=== PATIENT | male | born 1965 | race Caucasian/White ===

== ENCOUNTER → 2024-12-18 | Outpatient (CLI) | payer BC, SELFPAY ==
--- NOTE | 2024-12-18 14:30 | XR_ITS ---
Examination: Abdomen sonogram, complete Date and time of exam: December 18, 2024 at 1428 hours INDICATIONS: Abdominal pain beginning one month ago Technique: Multiple real-time grayscale transabdominal sonographic images of the abdomen have been obtained. Findings: 20 mm gallstone Gallbladder wall 0.3 cm no edema Common bile duct 0.3 cm Pancreatic head 3.3 cm Aorta not enlarged Liver 19.7 cm fatty infiltration Normal hepatopedal portal venous oh Patent IVC Right kidney 11.7 cm renal cortex 1.1 cm Left kidney 10.8 cm renal cortex 1.3 cm Moderate renal parenchymal scar formation Spleen 10.3 cm IMPRESSION: Cholelithiasis, negative for cholecystitis Moderate hepatomegaly fatty liver
== END | disposition home or self-care (01) ==
LOC: CDIM 14:04
PROVIDERS: PCP Family Medicine; Referring Provider Physician Assistant; Visit Provider Physician Assistant
DX: K80.20 Calculus of gallbladder without cholecystitis without obstruction (principal); K76.0 Fatty (change of) liver, not elsewhere classified
CPT/HCPCS: 76700

== ENCOUNTER 2025-02-15 12:25 | Day surgery (SDC) | payer BC, SELFPAY ==
[2025-02-15] VITALS (12 sets, daily range): BP systolic 113–172; BP diastolic 84–115; PULSE 64–85; RESP 9–18; TEMP 36.6–37.1; O2SAT 93–99; BMI 32.9
[2025-02-15] MEDS: SODIUM CHLORIDE 0.9% 500 ML 500 ML 20 ML IV (14:10)
[2025-02-15] MEDS: BENZOCAINE 20% (Hurricaine) SPRAY 1 DOSE TOP (14:10)
[2025-02-15] MEDS: fentaNYL CIT INJ 50 mCg/ML AMP 2ML (ASD USE ONLY) IVP (14:25)
[2025-02-15] MEDS: MIDAZOLAM INJ 1 MG/ML VIAL 2 ML (ASD USE ONLY) 2 MG IVP (14:25)
[2025-02-15] MEDS: DiphenhydrAMINE INJ 50 MG/ML VIAL 25 MG IVP (14:31)
== END 2025-02-15 15:40 | disposition home or self-care (01) ==
PROVIDERS: PCP Family Medicine; Referring Provider Specialist; Visit Provider Specialist
PROC: 0DBE8ZX Excision of Large Intestine, Via Natural or Artificial Opening Endoscopic, Diagnostic (ICD-10-PCS; CPT 45380; principal; 2025-02-15 09:00)
PROC: (CPT 43239; 2025-02-15 09:00)
DX: D12.3 Benign neoplasm of transverse colon (principal); K64.9 Unspecified hemorrhoids; K57.31 Diverticulosis of large intestine without perforation or abscess with bleeding; K29.51 Unspecified chronic gastritis with bleeding; K20.91 Esophagitis, unspecified with bleeding; K63.5 Polyp of colon
CPT/HCPCS: 45385; 45380; J1200; J2250; J3010; J7040; A9270